=== PATIENT | female | born 1995 | race Caucasian/White ===

== ENCOUNTER 2016-10-21 11:20 | Inpatient (IN) | payer OTHER, MEDICAID ==
[2016-10-21] MEDS ORDERED: OBEPIDURAL* 250 ML ONE (12:20)
[2016-10-21 12:43] LABS: Hematocrit 36 % (35-47); Mean Corpuscular HGB Conc 34 g/dl (31-36); Mean Corpuscular Hemoglobin 30 pg (27-31); Mean Corpuscular Volume 90 fL (80-97); Mean Platelet Volume 9 um3 (7.4-10.4); Red Cell Distribution Width 14 % (10.5-15); White Blood Count 11.9 10^3/ul (3.5-10.8)
[2016-10-21] MEDS ORDERED: fentaNYL* 50 MCG/ML 5 ML VIAL (250 MCG VIAL) ONE ×2 (13:14→13:32)
[2016-10-21] MEDS ORDERED: fentaNYL* 50 MCG/ML 2 ML VIAL (100 MCG VIAL) ONE (14:05)
[2016-10-21] MEDS ORDERED: Oxytocin in LR* 20 UNITS/1,000 ML BAG IVPB ONE (14:27)
[2016-10-21] MEDS ORDERED: Ibuprofen TAB* 600 MG PO PRN (14:39)
[2016-10-21] MEDS ORDERED: Acetaminophen TAB* 325 MG PO PRN (14:39)
[2016-10-21] MEDS ORDERED: Dibucaine 1% 28.35 GM TUBE PR PRN (14:39)
[2016-10-21] MEDS ORDERED: Glycerin ADULT SUPP PR PRN (14:39)
[2016-10-21] MEDS ORDERED: Witch Hazel PAD* JAR TOPICAL PRN (14:39)
[2016-10-21] MEDS ORDERED: Oxytocin in LR* 20 UNITS/1,000 ML BAG IVPB SCH (15:00)
[2016-10-21] MEDS ORDERED: Simethicone TAB* 80 MG TAB.CHEW PO SCH (17:30)
[2016-10-21] MEDS: Docusate CAP* 100 MG PO SCH (20:48)
[2016-10-22 07:08] LABS: Hematocrit 32 % (35-47); Hemoglobin 10.7 g/dl (12.0-16.0); Mean Corpuscular HGB Conc 33 g/dl (31-36); Mean Corpuscular Hemoglobin 30 pg (27-31); Mean Corpuscular Volume 91 fL (80-97); Mean Platelet Volume 8 um3 (7.4-10.4); Red Blood Count 3.55 10^6/ul (4.0-5.4); Red Cell Distribution Width 14 % (10.5-15); White Blood Count 12.9 10^3/ul (3.5-10.8)
[2016-10-22 08:06] VITALS: BP 138/71
[2016-10-22] MEDS: Docusate CAP* 100 MG PO SCH ×2 (08:49→14:00)
== END 2016-10-22 15:35 | disposition home or self-care (01) | DRG 775 ==
LOC: MCHOBOUT 11:20 → MCHOB 12:03
PROVIDERS: ADMIT Obstetrics & Gynecology; ATTEND Obstetrics & Gynecology
PROC: 10E0XZZ Delivery of Products of Conception, External Approach (ICD-10-PCS; principal; 2016-10-21)
PROC: 4A1HX4Z Monitoring of Products of Conception, Cardiac Electrical Activity, External Approach (ICD-10-PCS; 2016-10-21)
DX: O71.82 Other specified trauma to perineum and vulva (principal); Z88.0 Allergy status to penicillin; Z3A.40 40 weeks gestation of pregnancy; Z37.0 Single live birth
CPT/HCPCS: 36415; 85025; 86850; 86900; 86901; 87641; A9270-GY; J3010

== ENCOUNTER 2018-06-18 08:01 | Inpatient (IN) | payer OTHER, MEDICAID ==
[2018-06-18] MEDS ORDERED: Misoprostol TAB* 100 MCG PO ONE (08:41)
--- NOTE | 2018-06-18 08:57 | HP ---
General Information - Reason for Visit Term IOL for hx macrosomic weighing 9lb 9oz - General Information Maternal Age: 23 Grav: 4 Para: 3 SAB: 0 IEA: 0 Estimated Due Date: 06/25/18 Determined By: Early Ultrasound Gestational Age in Weeks/Days: 39-0/7 Maternal Blood Type and Rh: O Positive - Results this Serology/RPR Result: Non-Reactive Rubella Result: Immune HBsAg Result: Negative HIV Result: Negative GBS Culture Result: Negative Past Medical History Delivery History: Hx Uncomplicated Vaginal Delivery Delivery History Comment: 06/04/2011 7lb 10oz male. 39 week IOL for PUPPS - [facility] by Ida Carreon CNM 03/01/2015 7lb 14oz female. 39 week spontaneous labor - [facility] by Dr. Espinoza for [facility] 10/21/2016 9lb 9oz female. 40 week spontaneous labor - [facility] by Dr. Da Silva for [facility] Pertinent Past Medical History: See Records Past Medical History Comment: Asthma - No current medications Depression/Anxiety - No current medications Pertinent Past Surgical History: See Records Past Surgical History Comment: [place] tooth extraction Pertinent Family History: Non-Contributory - Antepartal Records Antepartal Records: Reviewed, Uncomplicated Review of Systems Constitutional: Comfortable CV Complaint: No Respiratory: Shortness of Breath: No Gastrointestinal: No Nausea/Vomiting, Normal Bowel Movement Genitourinary: No Dysuria, No Bleeding, No Leaking Fluid Musculoskeletal: Back Pain, Abdominal Pain Neurological: No Headache, No Visual Changes Movement: Normal Exam Allergies/Adverse Reactions: Allergies MS Penicillins [PCN] Allergy (Verified 10/21/16 15:01) Hives BP 137/78, 144/89, 138/90 HR 82 RR 18 T 99.1 SpO2 100% - Measurements Height: 5 ft 6 in Weight: 160 lb Weight in lbs: 160.839098 Body Mass Index (BMI): 25.8 Pre- Weight: 130 lb Weight Gained This : 30 lbs and 0 ozs - Exam Breast: Breast Exam Deferred CVA: No CVA Tenderness Extremities: No Edema Heart: Normal Rhythm/Heart Sounds HEENT: No Significant Findings Lungs: Clear Bilaterally Rectal: Rectal Exam Deferred Reflexes: DTR 2+ Thyroid: No Thyromegaly - Abdominal Exam Abdomen Exam: Non-Tender, Fundal Height Consistent with Dates - Ultrasound/Biophysical Profile Ultrasound Status: Not Done Targeted Exam Findings See L&D Outpatient Visit Provider Note for Findings: N/A Cervical Exam: 1cm Effacement: 50% Station: -2 Presenting Part: Vertex Membrane Status: Intact Sterile Speculum Exam: Not done Bleeding/Discharge: None EFM Findings - External Monitor Findings Baseline Heart Rate: 135 External Monitor Findings: Accelerations Present, No Pattern of Variable or Late Decelerations, Variability Moderate, Baseline Stable External Monitor Findings Comment: No evidence of metabolic acidemia Contractions: Irregular, Mild Assessment/Plan - Assessment IUP at 39 weeks here for elective term IOL due to hx macrosomic infant (9lbs 9oz ) - Plan Plan: Induction Plan Comment: Discussed options for induction given Bishops Score of 4. Discussed Cervidil vs. Misoprostol for ripening. Pt prefers trial of faster acting medication: Misoprostol. PARQ and all ?s answered. Will start with oral misoprostol and consider IV pitocin PRN. Anticipate - Date/Time of Admission Date of Admission: 06/18/18 Time of Admission: 08:35
[2018-06-18 09:27] LABS: Hematocrit 37 % (35-47); Hemoglobin 12.6 g/dl (12.0-16.0); Mean Corpuscular HGB Conc 34 g/dl (31-36); Mean Corpuscular Hemoglobin 31 pg (27-31); Mean Corpuscular Volume 90 fL (80-97); Platelet Count 206 10^3/ul (150-450); Red Blood Count 4.11 10^6/ul (4.00-5.40); Red Cell Distribution Width 14 % (10.5-15); White Blood Count 6.4 10^3/ul (3.5-10.8)
[2018-06-18 09:58] LABS: ABS Basophils 0 10^3/ul (0-0.2); ABS Eosinophils 0.1 10^3/ul (0-0.6); ABS Lymphocytes 1.6 10^3/ul (1.0-4.8); ABS Monocytes 0.7 10^3/ul (0-0.8); ABS Nucleated RBC 0 10^3/ul; Eosinophil % 1.1 % (0-6); Lymphocyte % 24.7 % (25-47); Nucleated Red Blood Cells % 0.1
[2018-06-18 10:00] LABS: Urine Appearance Clear; Urine Blood Negative (Negative); Urine Color Yellow; Urine Ketones 1+ (Negative); Urine Protein Negative (Negative); Urine Specific Gravity 1.005 (1.010-1.030); Urine Urobilinogen Negative (Negative)
[2018-06-18] MEDS ORDERED: Oxytocin in LR* 20 UNITS/1,000 ML BAG IVPB ONE (14:17)
--- NOTE | 2018-06-18 14:17 | PN ---
Progress Note - Progress Note Date of Service: 06/18/18 Note: S: Pt feeling some uncomfortable UCs. A little teary at peak but coping. Would like to discuss plan for continued IOL. BP labs all WNL O: BP 139/81 HR 74 T 98.9 FHT: 135bpm. Moderate variability. +Accels. No decels UCs q 3-4 min x 50-100 sec VE: 3cm/50%/vtx -1 A: IUP at 39 weeks with good benefit of oral misoprostol x 1 No evidence of metabolic acidemia P: Discussed ongoing IOL with IV pitocin and can consider AROM PRN. Pt agrees with plan. Discussed options for pain mgmt in labor. Pt hoping to avoid CEI due to difficulties with placement and getting comfortable last time. Interested in trying nitrous oxide. Will request when ready. Continue to monitor maternal/ status closely
[2018-06-18] MEDS ORDERED: Oxytocin in LR* 20 UNITS/1,000 ML BAG IVPB SCH (14:30)
[2018-06-18] MEDS ORDERED: fentaNYL* 50 MCG/ML 2 ML VIAL (100 MCG VIAL) IV SLOW PU ONE (16:49)
--- NOTE | 2018-06-18 16:54 | PN ---
Progress Note - Progress Note Date of Service: 06/18/18 Note: S: Pt found that nitrous not helpful. Requesting IV pain medication. Last used nitronox 1601 O: BP 156/86 HR 83 T 98.5 FHT 140bpm. Moderate variability. +Accels. No decels. UCs q 1-4 min. IV pitocin at 8mu/min VE: 3-4/50%/vtx -1 A: IUP at 39 weeks in early active labor Gestational hypertension No evidence of metabolic acidemia P: Counseled for trial IV Fentanyl including risks/benefit/alternatives. All ?s answered. Pt would like to try. Rx input.
[2018-06-18] MEDS ORDERED: OBEPIDURAL* 250 ML EPIDURAL ONE (19:30)
--- NOTE | 2018-06-18 19:34 | PN ---
Progress Note - Progress Note Date of Service: 06/18/18 Note: S: After re-thinking about IV pain medication pt and FOB declined. Opted for trial of tub for pain relief and recently out and requesting epidural O: BP 156/86 HR 83 T 98.5 FHT: 140bpm. Moderate variability. +Accels. No decels UCs q 2-3 min. IV pit at 12mu/min VE: deferred A: IUP at 39 weeks in early active labor No evidence of metabolic acidemia Gestational hypertension P: Anesthesia paged for consult. Discussed amniotomy after pt comfortable. Pt agrees.
[2018-06-18] MEDS ORDERED: Sodium Citrate/Citric Acid* 15 ML UDC PO PRN (20:20)
[2018-06-18] MEDS ORDERED: Famotidine TAB* 20 MG PO PRN (20:20)
[2018-06-18] MEDS ORDERED: Phenylephrine IV* 40 MCG/ML 10 ML SYRINGE IV PUSH PRN (20:20)
[2018-06-18] MEDS ORDERED: OBEPIDURAL* 250 ML EPIDURAL SCH (21:00)
--- NOTE | 2018-06-18 22:56 | PN ---
Progress Note - Progress Note Date of Service: 06/18/18 Note: S: Still comfortable with epidural. Reports some pressure at peak of UCs but denies pain O: BP 135/85 T 99 FHT: 125bpm. Moderate variability. +Accels. No decels UCs q 3-5 min. IV pit at 14mu/min VE: 5cm/70%/vtx -1, clear fluid A: IUP at 39 in active labor No evidence of metabolic acidemia Gestational hypertension P: Continue IV pitocin. Enc rest. Close monitoring of maternal/ status
[2018-06-19] MEDS ORDERED: Ondansetron INJ* 2 MG/ML VIAL IV ONE (00:58)
[2018-06-19] MEDS ORDERED: Ondansetron INJ* 2 MG/ML VIAL ONE (00:58)
[2018-06-19] MEDS ORDERED: Acetaminophen TAB* 325 MG PO PRN (01:56)
[2018-06-19] MEDS ORDERED: Witch Hazel PAD* JAR TOPICAL PRN (01:56)
[2018-06-19] MEDS ORDERED: Glycerin ADULT SUPP PR PRN (01:56)
[2018-06-19] MEDS ORDERED: Dibucaine 1% 28.35 GM TUBE PR PRN (01:56)
--- NOTE | 2018-06-19 01:56 | PROCNOTE ---
[facility] OB: Delivery Note - Delivery A Date of : 06/19/18 Time of : 01:34 [place] Sex: Female Score 1 Minute: 9 Score 5 Minutes: 9 Gestational Age in Weeks and Days at Delivery: 39 Weeks and 1 Days Delivery Method: Spontaneous Vaginal Labor: Induced Did Patient attempt ?: N/A, No Previous Amniotic Fluid: Clear Estimated Blood Loss: 350 Anesthesia/Analgesia: CEI for Labor, Nitrous-Labor Anesthesia Comment: Epidural placed by Dr. Matamoros Delivered By: Marysol Jimenez - Nursery Level of Nursery: Regular/Bedside - Perineum Perineal Injury: None/Intact Perineal Repair: None - Events Delivery Events of Note: Pitocin During Labor - Additional Delivery Notes Additional Delivery Notes: Pt admitted for term induction of labor at 39 weeks. 50mcg Misoprostol given orally with good benefit. IV pitocin then started and amniotomy to clear fluid resulted in expected progression to complete. Length of active phase 5 hours, 6 min. Pushed x 9 min. liveborn female. Slow, controlled delivery of head. OA to JARRETT. Shoulders followed easily with maternal push. vigorous with spontaneous cry. HR> 110bpm. Delivered to maternal abdomen. Cord clamped x 2 and cut by FOB when pulsations ceased. Spontaneous delivery intact placenta. membranes complete. Fundus firm to massage with IV pitocin infusing. Minimal bleeding noted. Perineum intact. No repair needed as above. EBL 350mL. At time of note mother and in stable condition. Planning to both breast and bottle feed per preference
[2018-06-19] MEDS ORDERED: Oxytocin in LR* 20 UNITS/1,000 ML BAG IVPB SCH (02:00)
[2018-06-19] MEDS: Ibuprofen TAB* 600 MG PO PRN ×3 (03:34→13:50)
[2018-06-19] MEDS: Docusate CAP* 100 MG PO SCH ×3 (09:33→21:06)
[2018-06-19] MEDS: Simethicone TAB* 80 MG TAB.CHEW PO SCH ×2 (09:33→13:50)
[2018-06-20 06:58] LABS: ABS Basophils 0.1 10^3/ul (0-0.2); ABS Eosinophils 0.4 10^3/ul (0-0.6); ABS Lymphocytes 2.5 10^3/ul (1.0-4.8); ABS Monocytes 0.8 10^3/ul (0-0.8); ABS Neutrophils 4.8 10^3/ul (1.5-7.7); ABS Nucleated RBC 0 10^3/ul; Hematocrit 38 % (35-47); Hemoglobin 12.6 g/dl (12.0-16.0); Lymphocyte % 29.2 % (25-47); Mean Corpuscular HGB Conc 34 g/dl (31-36); Mean Corpuscular Hemoglobin 30 pg (27-31); Mean Corpuscular Volume 90 fL (80-97); Nucleated Red Blood Cells % 0.1; Platelet Count 235 10^3/ul (150-450); Red Blood Count 4.17 10^6/ul (4.00-5.40); Red Cell Distribution Width 14 % (10.5-15); White Blood Count 8.6 10^3/ul (3.5-10.8)
[2018-06-20 08:07] VITALS: BP 130/87
[2018-06-20] MEDS: Docusate CAP* 100 MG PO SCH (08:32)
[2018-06-20] MEDS ORDERED: Ferrous Gluconate TAB* 324 MG TAB PO SCH (09:00)
== END 2018-06-20 10:52 | disposition home or self-care (01) | DRG 775 ==
LOC: MCHOBOUT 08:01 → MCHOB 08:33
PROVIDERS: ADMIT Midwife; ATTEND Midwife
PROC: 3E033VJ Introduction of Other Hormone into Peripheral Vein, Percutaneous Approach (ICD-10-PCS; principal; 2018-06-18)
PROC: 10E0XZZ Delivery of Products of Conception, External Approach (ICD-10-PCS; 2018-06-18)
PROC: 10907ZC Drainage of Amniotic Fluid, Therapeutic from Products of Conception, Via Natural or Artificial Opening (ICD-10-PCS; 2018-06-18)
DX: O13.4 Gestational [pregnancy-induced] hypertension without significant proteinuria, complicating childbirth (principal); Z37.0 Single live birth; Z3A.39 39 weeks gestation of pregnancy; Z88.0 Allergy status to penicillin
CPT/HCPCS: 36415; 80053; 81003; 84550; 85025; 86850; 86900; 86901; A9270-GY; J2405; J3010; S0191

== ENCOUNTER 2020-08-01 14:22 | Inpatient (IN) ==
[2020-08-01] MEDS ORDERED: Lactated Ringers 1000 ml BAG 1,000 ML IV ONE (14:46)
[2020-08-01] MEDS ORDERED: Lactated Ringers 1000 ml BAG 1,000 ML IV SCH (15:00)
[2020-08-01 15:38] LABS: ABS Eosinophils 0.1 10^3/ul (0-0.6); ABS Lymphocytes 1.4 10^3/ul (1.0-4.8); ABS Monocytes 0.7 10^3/ul (0-0.8); ABS Neutrophils 3.9 10^3/ul (1.5-7.7); Eosinophil % 0.9 %; Hematocrit 34 % (35-47); Hemoglobin 11.6 g/dL (12.0-16.0); Lymphocyte % 22.1 %; Mean Corpuscular HGB Conc 34 g/dL (31-36); Mean Corpuscular Hemoglobin 31 pg (27-31); Mean Corpuscular Volume 91 fL (80-97); Mean Platelet Volume 8.8 fL (7.4-10.4); Platelet Count 229 10^3/uL (150-450); Red Blood Count 3.74 10^6 /uL (3.70-4.87); Red Cell Distribution Width 15 % (10-15); White Blood Count 6.1 10^3/uL (3.5-10.8)
[2020-08-01 16:10] LABS: Albumin 3.4 g/dL (3.2-5.2); Calcium 8.4 mg/dL (8.6-10.3); Potassium 3.7 mmol/L (3.5-5.0); Total Bilirubin 0.4 mg/dL (0.2-1.0)
[2020-08-01 16:16] LABS: Albumin/Globulin Ratio 1.2 (1-3); BUN/Creatinine Ratio 9.8 (8-20); EGFR African American 225.2 (>60); EGFR Non-African American 186.1 (>60); Globulin 2.9 g/dL (2-4); Total Protein 6.3 g/dL (6.4-8.9); Uric Acid 3.9 mg/dL (2.3-6.6)
[2020-08-01 16:18] LABS: Urine Benzodiazepine Screen None Detected (None Detect); Urine Cannabinoids Screen None Detected (None Detect); Urine Opiates Screen None Detected (None Detect)
[2020-08-01] MEDS ORDERED: Oxytocin in LR 20 UNITS/1,000 ML BAG IVPB SCH (20:00)
[2020-08-02] MEDS ORDERED: Morphine 10 MG/ML VIAL (1 ml) IV ONE (03:33)
[2020-08-02] MEDS ORDERED: OBEPIDURAL 250 ML EPIDURAL ONE (07:15)
[2020-08-02] MEDS ORDERED: Famotidine IV 10 MG/ML 2 ml VIAL (20 mg) IV PRN (08:58)
[2020-08-02] MEDS ORDERED: Phenylephrine 40 mcg/mL 10mL (400mcg) SYRINGE IV PUSH PRN ×2 (08:58)
[2020-08-02] MEDS ORDERED: Lactated Ringers 1000 ml BAG 500 ML IV PRN ×2 (08:58)
[2020-08-02] MEDS ORDERED: Sodium Citrate/Citric Acid LIQ 15 ML UDC PO PRN (08:58)
[2020-08-02] MEDS ORDERED: Lactated Ringers 1000 ml BAG 1,000 ML IV ONE (08:58)
[2020-08-02] MEDS ORDERED: Lactated Ringers 1000 ml BAG 1,000 ML IV SCH ×2 (09:00→12:00)
[2020-08-02] MEDS ORDERED: OBEPIDURAL 250 ML EPIDURAL SCH (09:00)
[2020-08-02] MEDS ORDERED: Famotidine IV 10 MG/ML 2 ml VIAL (20 mg) ONE (09:04)
[2020-08-02] MEDS ORDERED: Dibucaine 1% OINT 28.35 GM TUBE ONE (10:23)
[2020-08-02] MEDS ORDERED: Witch Hazel PAD JAR ONE (10:23)
[2020-08-02] MEDS ORDERED: Witch Hazel PAD JAR TOPICAL PRN (11:04)
[2020-08-02] MEDS ORDERED: Dibucaine 1% OINT 28.35 GM TUBE PR PRN (11:04)
[2020-08-02] MEDS ORDERED: Oxytocin in LR 20 UNITS/1,000 ML BAG IVPB SCH (12:00)
[2020-08-03 07:38] LABS: ABS Basophils 0.1 10^3/ul (0-0.2); ABS Eosinophils 0.3 10^3/ul (0-0.6); ABS Lymphocytes 2.1 10^3/ul (1.0-4.8); ABS Monocytes 0.9 10^3/ul (0-0.8); ABS Neutrophils 4.6 10^3/ul (1.5-7.7); Eosinophil % 4.1 %; Hematocrit 33 % (35-47); Hemoglobin 11.6 g/dL (12.0-16.0); Lymphocyte % 26.1 %; Mean Corpuscular HGB Conc 35 g/dL (31-36); Mean Corpuscular Hemoglobin 32 pg (27-31); Mean Corpuscular Volume 91 fL (80-97); Mean Platelet Volume 8.9 fL (7.4-10.4); Platelet Count 200 10^3/uL (150-450); Red Blood Count 3.61 10^6 /uL (3.70-4.87); Red Cell Distribution Width 15 % (10-15)
[2020-08-03 07:39] VITALS: BP 158/88
== END 2020-08-03 13:09 | disposition home or self-care (01) | DRG 560 ==
LOC: MCHOBOUT 14:22 → MCHOB 14:49
PROVIDERS: ADMIT Midwife; ATTEND Midwife